=== PATIENT | female | born 1985 ===

== ENCOUNTER 2018-09-21 13:40 | Inpatient (IN) ==
[2018-09-21] MEDS ORDERED: LACTATED RINGERS 1,000 ML IV ONE (17:14)
[2018-09-21] MEDS: TERBUTALINE 1 MG/1 ML VIAL SUBCUT PRN ×2 (17:44→18:20)
[2018-09-21] MEDS ORDERED: LACTATED RINGERS 1,000 ML IV SCH (22:30)
[2018-09-22 03:45] VITALS: BP 90/46
[2018-09-22] MEDS: TERBUTALINE 1 MG/1 ML VIAL SUBCUT PRN ×2 (11:55→12:29)
[2018-09-22] MEDS ORDERED: NIFEdipine 10 MG CAPSULE PO ONE (13:46)
[2018-09-22] MEDS ORDERED: NIFEdipine 10 MG CAPSULE PO SCH ×2 (13:47→18:00)
[2018-09-22 17:21] LABS: Basophils % 0.2 % (0.0-0.8); Eosinophils % 0.3 % (0.00-10.9); Hematocrit 31.5 VOL% (35.7-47.0); Hemoglobin 10.4 GM/DL (12.0-16.0); Immature Granulocytes % 0.5 %; Immature Granulocytes Absolute 0.03 #; Lymphocytes # 1.1 10*3/uL (1.4-4.0); Lymphocytes % 17.6 % (21.3-54.2); Mean Corpuscular Hemoglobin 32 PG (27-34); Mean Corpuscular Volume 95.7 FL (87-102); Mean Platelet Volume 11.3 FL (9.6-12.0); Monocytes # 0.5 10*3/uL (0.11-0.8); Monocytes % 7.7 % (1.7-12.7); Neutrophils # 4.7 10*3/uL (1.4-7.4); Neutrophils % 73.7 % (38.7-73.9); Platelet Count 148 T/CUMM (130-400); Red Blood Count 3.29 MC/CUMM (3.8-5.5); Red Cell Distribution Width 13.2 % (9.3-17.3); White Blood Count 6.4 T/CUMM (4-12)
[2018-09-24] MEDS ORDERED: INFLUENZA VIRUS VACCINE 0.5 ML SYRINGE IM ONE (17:11)
== END 2018-09-22 19:25 | disposition left against medical advice (07) | DRG 563 ==
LOC: N.LDOUT 13:40 → N.LD 13:42
PROVIDERS: ADMIT Obstetrics & Gynecology; ATTEND Obstetrics & Gynecology

== ENCOUNTER 2018-09-24 01:20 | Inpatient (IN) ==
[2018-09-24 02:14] LABS: Apearance,Urine CLOUDY (Clear); Bacteria,Urine Occasional /HPF (Few); Bilirubin,Urine Negative (Negative); Blood, Urine Negative (Negative); Glucose,Urine (UA) Negative (Negative); Ketones,Urine 20 mg/dL (Negative); Mucus,Urine Occasional /LPF (Occasional); Nitrite,Urine Negative (Negative); Protein,Urine 30 MG/DL; RBC,Urine 3 /HPF (0-4); Renal Epithelial Cells,Urine Occasional /HPF (<1); Squamous Epithelial Cell,Urine Occasional /HPF (0-10); Transitional Epi Cells,Urine Occasional /HPF (<1); Urine Color Yellow (Yellow); Urine Specific Gravity 1.026 (1.001-1.035); WBC,Urine 2 /HPF (0-6)
[2018-09-24] MEDS ORDERED: ONDANSETRON 4 MG/2 ML VIAL IV PRN ×2 (08:38→16:43)
[2018-09-24] MEDS ORDERED: BUTORPHANOL 2 MG/ML VIAL IV PRN (08:38)
[2018-09-24] MEDS ORDERED: MEPERIDINE 50 MG/1 ML VIAL IV PRN (08:38)
[2018-09-24] MEDS ORDERED: diphenhydrAMINE 50 MG/1 ML VIAL IV PRN ×2 (08:40)
[2018-09-24] MEDS ORDERED: NALOXONE 0.4 MG/ML VIAL IV PRN (08:40)
[2018-09-24] MEDS ORDERED: ePHEDrine 50 MG/ML AMP IV PRN (08:40)
[2018-09-24] MEDS ORDERED: PROMETHAZINE 25 MG/1 ML VIAL IM ONE (08:40)
[2018-09-24] MEDS ORDERED: hydrOXYzine HCL 25 MG/1 ML VIAL IM PRN (08:40)
[2018-09-24] MEDS ORDERED: LACTATED RINGERS 1,000 ML IV ONE (08:40)
[2018-09-24] MEDS ORDERED: FAMOTIDINE 20 MG/2 ML VIAL IV ONE (08:40)
[2018-09-24] MEDS ORDERED: CITRIC ACID/SODIUM CITRATE 30 ML UDCUP PO ONE (08:40)
[2018-09-24] MEDS ORDERED: ONDANSETRON 4 MG/2 ML VIAL IV ONE (08:40)
[2018-09-24] MEDS ORDERED: OXYTOCIN/LR 20 UNIT/1,000 ML BAG IV SCH (09:00)
[2018-09-24] MEDS ORDERED: LACTATED RINGERS 1,000 ML IV SCH (09:00)
[2018-09-24] MEDS ORDERED: fentaNYL 2 MCG/ROPIV 0.2% EPID 100 ML EPIDURAL SCH (09:00)
[2018-09-24 09:09] LABS: Basophils % 0.2 % (0.0-0.8); Eosinophils # 0.1 10*3/uL (0.0-0.87); Eosinophils % 0.9 % (0.00-10.9); Hemoglobin 11.3 GM/DL (12.0-16.0); Immature Granulocytes % 0.6 %; Immature Granulocytes Absolute 0.04 #; Lymphocytes # 1.5 10*3/uL (1.4-4.0); Lymphocytes % 23.4 % (21.3-54.2); Mean Corpuscular HGB Conc 33.2 GM/DL (32-36); Mean Corpuscular Hemoglobin 32 PG (27-34); Mean Corpuscular Volume 96.3 FL (87-102); Mean Platelet Volume 11.2 FL (9.6-12.0); Monocytes # 0.6 10*3/uL (0.11-0.8); Monocytes % 8.4 % (1.7-12.7); Neutrophils # 4.4 10*3/uL (1.4-7.4); Neutrophils % 66.5 % (38.7-73.9); Platelet Count 145 T/CUMM (130-400); Red Blood Count 3.53 MC/CUMM (3.8-5.5); Red Cell Distribution Width 13.2 % (9.3-17.3); White Blood Count 6.6 T/CUMM (4-12)
[2018-09-24 09:28] LABS: Albumin 2.3 G/DL (3.4-5.0); Bilirubin,Total 0.5 MG/DL (0.2-1.0); Calcium 8.8 MG/DL (8.5-10.1); Osmolality,Calculated 277.4 MOS/KG (273-304); Potassium 3.9 MMOL/L (3.5-5.1); Total Protein 7.2 G/DL (6.4-8.3)
[2018-09-24 11:30] LABS: Apearance,Urine CLEAR (Clear); Bacteria,Urine Occasional /HPF (Few); Bilirubin,Urine Negative (Negative); Blood, Urine Negative (Negative); Glucose,Urine (UA) Negative (Negative); Ketones,Urine 20 mg/dL (Negative); Mucus,Urine Occasional /LPF (Occasional); Nitrite,Urine Negative (Negative); Protein,Urine Negative; RBC,Urine 1 /HPF (0-4); Squamous Epithelial Cell,Urine Occasional /HPF (0-10); Urine Color Yellow (Yellow); Urine Specific Gravity 1.011 (1.001-1.035); Urine Urobilinogen < 2.0 EU/DL (0.2-1.0)
[2018-09-24] MEDS ORDERED: miSOPROStol 200 MCG TABLET ONE (15:58)
[2018-09-24] MEDS ORDERED: ACETAMINOPHEN 325 MG TABLET PO PRN (16:43)
[2018-09-24] MEDS ORDERED: OXYTOCIN/LR 20 UNIT/1,000 ML BAG IV ONE (16:43)
[2018-09-24] MEDS ORDERED: MEASLES/MUMPS/RUBELLA VACCINE 0.5 ML VIAL SUBCUT ONE (16:43)
[2018-09-24] MEDS ORDERED: BENZOCAINE 20%/MENTHOL 0.5% SPRAY 56 GM CAN TOP PRN (16:43)
[2018-09-24] MEDS ORDERED: WITCH HAZEL PADS 100/JAR TOP PRN (16:43)
[2018-09-24] MEDS ORDERED: LANOLIN 50% CREAM 0.3 OZ TUBE TOP PRN (16:43)
[2018-09-24] MEDS ORDERED: DIPH/TET/ACEL PERT BOOSTER VACCINE 0.5 ML VIAL IM ONE (16:43)
[2018-09-24] MEDS ORDERED: RHO(D) IMMUNE GLOBULIN 300 MCG SYRINGE IM ONE (16:43)
[2018-09-24] MEDS ORDERED: HYDROCORTISONE 2.5% RECTAL CREAM 30 GM TUBE TOP PRN (16:43)
[2018-09-24] MEDS ORDERED: BISACODYL 10 MG SUPP RECTAL PRN (16:43)
[2018-09-24] MEDS ORDERED: oxyCODONE/ACETAMINOPHEN 5-325 MG TABLET PO PRN (16:43)
[2018-09-24] MEDS: DOCUSATE SODIUM 100 MG CAPSULE PO SCH (20:56)
[2018-09-24] MEDS: IBUPROFEN 800 MG TABLET PO PRN (20:56)
[2018-09-25 06:11] LABS: Basophils % 0.3 % (0.0-0.8); Eosinophils # 0.1 10*3/uL (0.0-0.87); Eosinophils % 1.3 % (0.00-10.9); Hematocrit 30.8 VOL% (35.7-47.0); Hemoglobin 10.4 GM/DL (12.0-16.0); Immature Granulocytes % 0.3 %; Immature Granulocytes Absolute 0.02 #; Lymphocytes # 1.6 10*3/uL (1.4-4.0); Lymphocytes % 21.7 % (21.3-54.2); Mean Corpuscular HGB Conc 33.8 GM/DL (32-36); Mean Corpuscular Hemoglobin 32 PG (27-34); Mean Corpuscular Volume 93.9 FL (87-102); Mean Platelet Volume 11.2 FL (9.6-12.0); Monocytes # 0.5 10*3/uL (0.11-0.8); Neutrophils % 69.4 % (38.7-73.9); Platelet Count 127 T/CUMM (130-400); Red Blood Count 3.28 MC/CUMM (3.8-5.5); White Blood Count 7.1 T/CUMM (4-12)
[2018-09-25] MEDS: DOCUSATE SODIUM 100 MG CAPSULE PO SCH ×2 (08:31→20:49)
[2018-09-25] MEDS: oxyCODONE/ACETAMINOPHEN 5-325 MG TABLET PO PRN ×2 (08:32→20:49)
[2018-09-25] MEDS: IBUPROFEN 800 MG TABLET PO PRN ×2 (08:34→20:49)
[2018-09-26 07:40] VITALS: BP 130/71
[2018-09-26] MEDS: DOCUSATE SODIUM 100 MG CAPSULE PO SCH (08:40)
[2018-09-26] MEDS ORDERED: INFLUENZA VIRUS VACCINE 0.5 ML SYRINGE IM ONE (11:35)
== END 2018-09-26 15:15 | disposition home or self-care (01) | DRG 560 ==
LOC: N.LDOUT 01:20 → N.LD 01:20 → N.OB 19:51
PROVIDERS: ADMIT Obstetrics & Gynecology; ATTEND Obstetrics & Gynecology

== ENCOUNTER 2021-04-24 16:27 | Inpatient (IN) ==
[2021-04-24] MEDS: LABETALOL 100 MG TABLET PO SCH ×2 (17:13→23:00)
[2021-04-24] MEDS: BETAMETH SODIUM PHOS/ACETATE 30 MG/5 ML VIAL IM SCH (17:13)
[2021-04-24 17:30] LABS: Basophils % 0.1 % (0.0-0.8); Eosinophils % 0.3 % (0.00-10.9); Hematocrit 37.7 VOL% (35.7-47.0); Hemoglobin 13.4 GM/DL (12.0-16.0); Immature Granulocytes % 0.5 %; Immature Granulocytes Absolute 0.05 #; Lymphocytes # 1.6 10*3/uL (1.4-4.0); Lymphocytes % 17.7 % (21.3-54.2); Mean Corpuscular HGB Conc 35.5 GM/DL (32-36); Mean Corpuscular Volume 92.6 FL (87-102); Mean Platelet Volume 10.7 FL (9.6-12.0); Monocytes % 6.3 % (1.7-12.7); Neutrophils % 75.1 % (38.7-73.9); Platelet Count 131 T/CUMM (130-400); Red Blood Count 4.07 MC/CUMM (3.8-5.5); White Blood Count 9.2 T/CUMM (4-12)
[2021-04-24 17:42] LABS: Alanine Aminotransferase 14 U/L (13-56); Alkaline Phosphatase 161 U/L (45-117); Aspartate Amino Transferase 27 U/L (0-37); Bilirubin,Direct < 0.100 MG/DL (0.0-0.20); Bilirubin,Total < 0.39 MG/DL (0.2-1.0); Blood Urea Nitrogen 12 MG/DL (7-18); Calcium 8.3 MG/DL (8.5-10.1); Carbon Dioxide 19 MMOL/L (21-32); Estimated Glom Filtration Rate 148 ML/MIN; Glucose 79 MG/DL (74-106); Osmolality,Calculated 277.4 MOS/KG (273-304); Potassium 3.4 MMOL/L (3.5-5.1); Sodium 140 MMOL/L (136-145); Total Protein 6.3 G/DL (6.4-8.2); Uric Acid 6.4 MG/DL (2.6-6.0)
[2021-04-24 17:44] LABS: INR 0.8; PT Patient Result 9.5 SECS (10.5-12.0); Partial Thromboplastin Time 28.7 SECS (23.9-33.8)
[2021-04-25] MEDS: BETAMETH SODIUM PHOS/ACETATE 30 MG/5 ML VIAL IM SCH (05:05)
[2021-04-25] MEDS: LABETALOL 100 MG TABLET PO SCH ×2 (08:58→21:12)
[2021-04-25 17:23] LABS: Total Protein 24 Hr Ur Result 11610 MG/24HR (0-149.1); Total Volume,Urine 500 ML (400-2000)
[2021-04-25] MEDS ORDERED: ONDANSETRON 4 MG/2 ML VIAL IV PRN (17:37)
[2021-04-25 18:31] LABS: Alanine Aminotransferase 12 U/L (13-56); Albumin 1.9 G/DL (3.4-5.0); Alkaline Phosphatase 152 U/L (45-117); Aspartate Amino Transferase 13 U/L (0-37); Bilirubin,Total < 0.39 MG/DL (0.2-1.0); Blood Urea Nitrogen 24 MG/DL (7-18); Calcium 8.3 MG/DL (8.5-10.1); Carbon Dioxide 19 MMOL/L (21-32); Estimated Glom Filtration Rate 106 ML/MIN; Glucose 155 MG/DL (74-106); Osmolality,Calculated 285.4 MOS/KG (273-304); Potassium 3.5 MMOL/L (3.5-5.1); Sodium 140 MMOL/L (136-145)
[2021-04-25] MEDS: LACTATED RINGERS 1,000 ML IV SCH (20:26)
[2021-04-26] MEDS: LACTATED RINGERS 1,000 ML IV SCH (04:18)
[2021-04-26] MEDS ORDERED: LABETALOL 200 MG TABLET PO SCH (09:00)
[2021-04-26] MEDS ORDERED: ceFAZolin 2,000 MG/50 ML DUPLEX IV ONE (19:51)
[2021-04-26] MEDS ORDERED: OXYTOCIN 10 UNIT/ML VIAL IM ONE (19:51)
[2021-04-26] MEDS ORDERED: OXYTOCIN/LR 30 UNIT/1,000 ML BAG IV ONE (19:51)
[2021-04-26] MEDS ORDERED: FAMOTIDINE 20 MG/2 ML VIAL IV ONE (19:52)
[2021-04-26] MEDS ORDERED: CITRIC ACID/SODIUM CITRATE 30 ML UDCUP PO ONE (19:53)
[2021-04-26] MEDS ORDERED: miSOPROStoL 200 MCG TABLET ONE (20:01)
[2021-04-26] MEDS ORDERED: CARBOPROST TROMETHAMINE 250 MCG/ML AMP IM ONE (20:01)
[2021-04-26] MEDS ORDERED: METHYLERGONOVINE 0.2 MG/1 ML AMP ONE (20:01)
[2021-04-26] MEDS ORDERED: TRANEXAMIC ACID 1,000 MG/10 ML VIAL ONE (20:01)
[2021-04-26 20:35] LABS: Bacteria,Urine Occasional /HPF (Few); Bilirubin,Urine Negative (Negative); Blood, Urine Negative (Negative); Glucose,Urine (UA) Negative (Negative); Ketones,Urine Negative (Negative); Mucus,Urine Occasional /LPF (Occasional); Nitrite,Urine Negative (Negative); Protein,Urine >=500 MG/DL; RBC,Urine 1 /HPF (0-4); Squamous Epithelial Cell,Urine Occasional /HPF (0-10); Urine Appearance CLEAR (Clear); Urine Color Yellow (Yellow); Urine Specific Gravity 1.024 (1.001-1.035); Urine Urobilinogen < 2.0 EU/DL (0.2-1.0)
[2021-04-26 21:37] LABS: Cord Arterial Blood HCO3 27.7 MMOL/L
[2021-04-26] MEDS ORDERED: BUPIVACAINE SPINAL 0.75% 2 ML AMP SPINAL ONE (21:40)
[2021-04-26] MEDS ORDERED: ACETAMINOPHEN INJ 1,000 MG/100 ML VIAL IV ONE (21:40)
[2021-04-26] MEDS ORDERED: ONDANSETRON 4 MG/2 ML VIAL ONE (21:40)
[2021-04-26] MEDS ORDERED: PHENYLEPHRINE 1 MG/10 ML SYRINGE IV ONE (21:40)
[2021-04-26 21:41] LABS: Cord Venous Blood HCO3 25.6 MMOL/L; Cord Venous Blood PCO2 50.4 MMHG; Cord Venous Blood PO2 20.9 MMHG
[2021-04-26] MEDS ORDERED: ONDANSETRON 4 MG/2 ML VIAL IV PRN (21:56)
[2021-04-26] MEDS ORDERED: OXYTOCIN/LR 20 UNIT/1,000 ML BAG IV ONE (21:56)
[2021-04-26] MEDS ORDERED: ACETAMINOPHEN 325 MG TABLET PO PRN (21:56)
[2021-04-26] MEDS ORDERED: RHO(D) IMMUNE GLOBULIN 300 MCG SYRINGE IM ONE (21:56)
[2021-04-26] MEDS ORDERED: LACTATED RINGERS 1,000 ML IV SCH (22:00)
[2021-04-27] MEDS ORDERED: HYDROmorphone 2 MG/1 ML VIAL IV PRN (00:13)
[2021-04-27] MEDS ORDERED: KETOROLAC 30 MG/1 ML VIAL IV PRN (04:00)
[2021-04-27] MEDS ORDERED: ACETAMINOPHEN 500 MG TABLET PO PRN (04:00)
[2021-04-27] MEDS: SIMETHICONE CHEW 80 MG TABLET PO PRN ×2 (09:40→22:09)
[2021-04-27] MEDS: IBUPROFEN 800 MG TABLET PO PRN ×2 (09:40→18:15)
[2021-04-27] MEDS: DOCUSATE SODIUM 100 MG CAPSULE PO SCH ×2 (09:40→22:09)
[2021-04-27] MEDS: MULTIVITAMIN (PRENATAL) TABLET PO SCH (09:40)
[2021-04-27 12:06] LABS: Basophils % 0.2 % (0.0-0.8); Eosinophils % 0.1 % (0.00-10.9); Hematocrit 36.8 VOL% (35.7-47.0); Hemoglobin 12.8 GM/DL (12.0-16.0); Immature Granulocytes % 0.7 %; Immature Granulocytes Absolute 0.07 #; Lymphocytes # 1.5 10*3/uL (1.4-4.0); Lymphocytes % 14.6 % (21.3-54.2); Mean Corpuscular HGB Conc 34.8 GM/DL (32-36); Mean Corpuscular Volume 96.6 FL (87-102); Mean Platelet Volume 10.7 FL (9.6-12.0); Monocytes % 8.6 % (1.7-12.7); Neutrophils % 75.8 % (38.7-73.9); Platelet Count 116 T/CUMM (130-400); Red Blood Count 3.81 MC/CUMM (3.8-5.5); Red Cell Distribution Width 13.2 % (9.3-17.3)
[2021-04-27] MEDS: MAGNESIUM HYDROXIDE SUSP 30 ML UDCUP PO PRN (22:09)
[2021-04-27] MEDS: METOCLOPRAMIDE 10 MG TABLET PO SCH (23:24)
[2021-04-28] MEDS: MULTIVITAMIN (PRENATAL) TABLET PO SCH (08:33)
[2021-04-28] MEDS: METOCLOPRAMIDE 10 MG TABLET PO SCH ×3 (08:33→23:34)
[2021-04-28] MEDS: DOCUSATE SODIUM 100 MG CAPSULE PO SCH ×2 (08:33→20:39)
[2021-04-28] MEDS: IBUPROFEN 800 MG TABLET PO PRN ×2 (13:09→20:38)
[2021-04-28] MEDS: MAGNESIUM HYDROXIDE SUSP 30 ML UDCUP PO PRN (20:38)
[2021-04-28] MEDS: SIMETHICONE CHEW 80 MG TABLET PO PRN (20:38)
[2021-04-29] MEDS: IBUPROFEN 800 MG TABLET PO PRN (04:22)
[2021-04-29 07:52] VITALS: BP 123/74
[2021-04-29] MEDS: METOCLOPRAMIDE 10 MG TABLET PO SCH (09:02)
[2021-04-29] MEDS: DOCUSATE SODIUM 100 MG CAPSULE PO SCH (09:03)
[2021-04-29] MEDS: MULTIVITAMIN (PRENATAL) TABLET PO SCH (09:03)
[2021-04-29] MEDS ORDERED: DIPH/TET/ACEL PERT BOOSTER VACCINE 0.5 ML VIAL IM ONE (09:55)
== END 2021-04-29 12:35 | disposition home or self-care (01) | DRG 540 ==
LOC: N.LDOUT 16:27 → N.LD 16:29 → N.OB 04-27 22:30
PROVIDERS: ADMIT Obstetrics & Gynecology; ATTEND Obstetrics & Gynecology
PROC: LDCSECT (ICD-10-PCS; 2021-04-26 20:00)